=== PATIENT | female | born 1985 | race Two or more races ===

== ENCOUNTER 2019-11-03 08:14 | Inpatient (IN) ==
[2019-11-03 09:14] LABS: Hematocrit 35 % (35-47); Hemoglobin 12.3 g/dL (12.0-16.0); Mean Corpuscular HGB Conc 35 g/dL (31-36); Mean Corpuscular Hemoglobin 29 pg (27-31); Mean Corpuscular Volume 82 fL (80-97); Mean Platelet Volume 11.9 fL (7.4-10.4); Platelet Count 144 10^3/uL (150-450); Red Cell Distribution Width 14 % (10-15); White Blood Count 8.4 10^3/uL (3.5-10.8)
[2019-11-03] MEDS: Lactated Ringers 1000 ml BAG 1,000 ML IV SCH ×3 (09:21→17:53)
[2019-11-03] MEDS ORDERED: Lactated Ringers 1000 ml BAG 1,000 ML IV ONE ×2 (09:44→12:47)
[2019-11-03 09:46] LABS: Urine Benzodiazepine Screen None Detected (None Detect); Urine Cannabinoids Screen None Detected (None Detect); Urine Opiates Screen None Detected (None Detect)
[2019-11-03] MEDS ORDERED: OBEPIDURAL 250 ML EPIDURAL ONE (10:18)
[2019-11-03] MEDS ORDERED: Oxytocin in LR 20 UNITS/1,000 ML BAG IVPB ONE (12:23)
[2019-11-03] MEDS ORDERED: EPHEDrine (Pressors) 50 MG/ML VIAL IV PUSH PRN ×2 (12:47)
[2019-11-03] MEDS ORDERED: Sodium Citrate/Citric Acid LIQ 15 ML UDC PO PRN (12:47)
[2019-11-03] MEDS ORDERED: Lactated Ringers 1000 ml BAG 500 ML IV PRN (12:47)
[2019-11-03] MEDS ORDERED: Phenylephrine 40 mcg/mL 10mL (400mcg) SYRINGE IV PUSH PRN ×2 (12:47)
[2019-11-03] MEDS ORDERED: OBEPIDURAL 250 ML EPIDURAL SCH (13:00)
[2019-11-03] MEDS ORDERED: Oxytocin in LR 20 UNITS/1,000 ML BAG IVPB SCH (13:00)
[2019-11-03] MEDS ORDERED: Lactated Ringers 1000 ml BAG 1,000 ML IV SCH ×2 (13:00→23:00)
[2019-11-03] MEDS ORDERED: Bupivacaine 0.25% SDV PF 10 ML VIAL INJ ONE (20:06)
[2019-11-03] MEDS ORDERED: Glycerin ADULT 2.4 gm SUPP PR PRN (22:32)
[2019-11-03] MEDS ORDERED: Dibucaine 1% OINT 28.35 GM TUBE PR PRN (22:32)
[2019-11-03] MEDS: Witch Hazel PAD JAR TOPICAL PRN (23:20)
[2019-11-04] MEDS ORDERED: diPHENhydraMINE 25 mg TAB ONE (00:58)
[2019-11-04] MEDS ORDERED: diPHENhydraMINE 25 mg TAB PO ONE (00:58)
[2019-11-04] MEDS ORDERED: Lidocaine 1% VIAL 10 MG/ML VIAL ONE (01:10)
[2019-11-04 10:15] LABS: ABS Lymphocytes 2.2 10^3/ul (1.0-4.8); ABS Monocytes 0.7 10^3/ul (0-0.8); ABS Neutrophils 11.5 10^3/ul (1.5-7.7); Eosinophil % 0.1 %; Hematocrit 31 % (35-47); Hemoglobin 10.2 g/dL (12.0-16.0); Lymphocyte % 14.9 %; Mean Corpuscular HGB Conc 33 g/dL (31-36); Mean Corpuscular Hemoglobin 28 pg (27-31); Mean Corpuscular Volume 85 fL (80-97); Platelet Count 129 10^3/uL (150-450); Red Cell Distribution Width 14 % (10-15); White Blood Count 14.5 10^3/uL (3.5-10.8)
[2019-11-05] MEDS: Witch Hazel PAD JAR TOPICAL PRN (09:06)
[2019-11-05 11:57] VITALS: BP 112/71
== END 2019-11-05 17:52 | disposition home or self-care (01) | DRG 807 ==
LOC: MCHOBOUT 08:14 → MCHOB 09:27
PROVIDERS: ADMIT Obstetrics & Gynecology; ATTEND Obstetrics & Gynecology

== ENCOUNTER 2023-07-14 08:08 | Inpatient (IN) ==
[2023-07-14] MEDS ORDERED: Lidocaine 1% VIAL 10 MG/ML 30 ML VIAL INJ PRN (09:11)
[2023-07-14] MEDS ORDERED: Prochlorperazine 5 mg/ml 2 ml VIAL (10 mg) IV PRN (09:11)
[2023-07-14 09:34] LABS: ABS Eosinophils 0.1 10^3/uL (0.0-0.5); ABS Lymphocytes 1.7 10^3/uL (1.0-4.8); ABS Monocytes 0.4 10^3/uL (0.0-0.9); ABS Neutrophils 4.6 10^3/uL (1.5-7.6); ABS Nucleated RBC 0.02 10^3/ul; Eosinophil % 1.1 %; Hematocrit 34.8 % (35-45); Hemoglobin 11.8 g/dL (11.5-14.3); Lymphocyte % 24.5 %; Mean Corpuscular Hemoglobin 27.1 pg (27-33); Mean Corpuscular Hgb Conc 33.9 g/dL (31-36); Mean Corpuscular Volume 79.8 fL (80-97); Mean Platelet Volume 11.1 fL (7.5-11.2); Nucleated Red Blood Cells % 0.3 %/100WBC (0.0-0.8); Platelet Count 195 10^3/uL (150-450); Red Blood Count 4.36 10^6/uL (3.63-4.92); Red Cell Distribution Width 14.2 % (12-17); White Blood Count 6.8 10^3/uL (3.8-11.8)
[2023-07-14] MEDS: Lactated Ringers 1000 ml BAG 1,000 ML IV SCH ×2 (09:58→19:49)
[2023-07-14 10:00] LABS: Urine Benzodiazepine Screen None Detected (None Detect); Urine Cannabinoids Screen None Detected (None Detect); Urine Opiates Screen None Detected (None Detect)
[2023-07-14] MEDS: Oxytocin in LR 20,000 MILLI.UNIT/1,000 ML BAG IV SCH ×2 (10:02→17:30)
[2023-07-14] MEDS: OBEPIDURAL (200 ML) 200 ML EPIDURAL SCH (11:28)
[2023-07-14] MEDS: Lactated Ringers 1000 ml BAG 1,000 ML IV ONE ×2 (11:28→19:49)
[2023-07-14] MEDS ORDERED: Sodium Citrate/Citric Acid LIQ 15 ML UDC PO PRN (12:11)
[2023-07-14] MEDS ORDERED: Phenylephrine 40 mcg/mL 10mL (400mcg) SYRINGE IV PUSH PRN (12:11)
[2023-07-14 12:37] LABS: Urine Appearance Clear; Urine Bilirubin Negative (Negative); Urine Blood Trace (Negative); Urine Color Light-Yellow; Urine Glucose Negative (Negative); Urine Ketones Negative (Negative); Urine Nitrite Negative (Negative); Urine Protein Negative (Negative); Urine Specific Gravity 1.012 (1.002-1.030); Urine Urobilinogen Negative (Negative)
[2023-07-14] MEDS ORDERED: Bupivacaine 0.25% w/EPI 10 ML SDV ONE (14:26)
[2023-07-14] MEDS: Phenylephrine 40 mcg/mL 10mL (400mcg) SYRINGE IV PUSH PRN (15:12)
[2023-07-14] MEDS ORDERED: Glycerin ADULT 2.4 gm SUPP PR PRN (17:37)
[2023-07-14] MEDS ORDERED: Lactated Ringers 1000 ml BAG 1,000 ML IV SCH (18:00)
[2023-07-14] MEDS: Buffered Lidocaine 1% SYRIN 1 ml INTRADERM ONE (19:46)
[2023-07-14] MEDS: OBEPIDURAL (200 ML) 200 ML EPIDURAL ONE (19:49)
[2023-07-14] MEDS: Lidocaine 1.5% EPI 1:200,000 30 ML SDV ONE (20:09)
[2023-07-15] MEDS: Witch Hazel PAD JAR TOPICAL PRN (06:03)
[2023-07-15] MEDS: Dibucaine 1% OINT 28.35 GM TUBE PR PRN (06:03)
[2023-07-15 06:30] LABS: ABS Eosinophils 0.1 10^3/uL (0.0-0.5); ABS Lymphocytes 2.1 10^3/uL (1.0-4.8); ABS Monocytes 0.5 10^3/uL (0.0-0.9); ABS Nucleated RBC 0.01 10^3/ul; Eosinophil % 0.8 %; Hematocrit 29.4 % (35-45); Hemoglobin 10.1 g/dL (11.5-14.3); Lymphocyte % 21.8 %; Mean Corpuscular Hemoglobin 27.3 pg (27-33); Mean Corpuscular Hgb Conc 34.3 g/dL (31-36); Mean Corpuscular Volume 79.6 fL (80-97); Mean Platelet Volume 10.4 fL (7.5-11.2); Nucleated Red Blood Cells % 0.1 %/100WBC (0.0-0.8); Platelet Count 162 10^3/uL (150-450); Red Blood Count 3.69 10^6/uL (3.63-4.92); Red Cell Distribution Width 13.9 % (12-17); White Blood Count 9.7 10^3/uL (3.8-11.8)
[2023-07-15] MEDS: Tetan/Diph/Pertus SYR(Tdap) 0.5 ML SYR(BOOSTRIX) use SYR contains LATEX IM ONE (14:47)
[2023-07-15 16:10] VITALS: BP 122/73
== END 2023-07-15 19:00 | disposition home or self-care (01) | DRG 560 ==
LOC: MCHOBOUT 08:08 → MCHOB 09:10
PROVIDERS: ADMIT Obstetrics & Gynecology; ATTEND Obstetrics & Gynecology

== ENCOUNTER 2023-07-17 21:46 | Inpatient (IN) ==
[2023-07-17] MEDS: Lactated Ringers SEPSIS* BAG 2,180 ML IV ONE (22:12)
[2023-07-17] MEDS: Morphine 4 MG/ML VIAL (1 ml) IV ONE (22:16)
[2023-07-17] MEDS: Ondansetron 4 mg VIAL 2 MG/ML 2 ml VIAL IV ONE (22:16)
[2023-07-17] MEDS: Clindamycin 900 MG/D5W BAG 900 MG/50 ML BAG IVPB ONE (22:17)
[2023-07-17 22:33] LABS: Activated Partial Thrombo Time 25.7 seconds (26.0-38.0); INR 0.85 (0.83-1.13)
[2023-07-17 22:38] LABS: ABS Lymphocytes 0.5 10^3/uL (1.0-4.8); ABS Neutrophils 3.7 10^3/uL (1.5-7.6); ABS Nucleated RBC 0.01 10^3/ul; Eosinophil % 0.5 %; Hematocrit 30.6 % (35-45); Hemoglobin 10.3 g/dL (11.5-14.3); Lymphocyte % 11.3 %; Mean Corpuscular Hemoglobin 27.2 pg (27-33); Mean Corpuscular Hgb Conc 33.8 g/dL (31-36); Mean Corpuscular Volume 80.3 fL (80-97); Mean Platelet Volume 9.6 fL (7.5-11.2); Nucleated Red Blood Cells % 0.2 %/100WBC (0.0-0.8); Platelet Count 219 10^3/uL (150-450); Red Blood Count 3.81 10^6/uL (3.63-4.92); Red Cell Distribution Width 14.2 % (12-17); White Blood Count 4.3 10^3/uL (3.8-11.8)
[2023-07-17 22:56] LABS: Albumin/Globulin Ratio 1.3 (1-3); C Reactive Protein 83.87 mg/L (<8.01); Calcium 8.1 mg/dL (8.6-10.3); Creatinine, Serum 0.85 mg/dL (0.51-0.95); Globulin 2.4 g/dL (2-4); Total Bilirubin 0.2 mg/dL (0.2-1.0); Total Protein 5.4 g/dL (6.4-8.9); eGFR CKD-EPI 90.4 (>60)
[2023-07-17] MEDS: Gentamicin ADULT 360 MG in NS 0.9% 100 ml BAG 100 ML IVPB ONE (23:14)
[2023-07-17 23:16] LABS: Urine Appearance Extra Turbid; Urine Bilirubin Negative (Negative); Urine Blood 2+ (Negative); Urine Color Light-Yellow; Urine Glucose Negative (Negative); Urine Ketones Negative (Negative); Urine Nitrite Negative (Negative); Urine Protein 2+ (>=100 mg/dL) (Negative); Urine Specific Gravity 1.012 (1.002-1.030); Urine Urobilinogen Negative (Negative); Urine pH 6.5 (5.0-8.0)
[2023-07-17 23:25] LABS: Urine Bacteria Absent /HPF (Absent); Urine Red Blood Cell 3+(>10/hpf) /HPF (0-Trace); Urine Squamous Epithelial Cell Present /HPF (Absent); Urine White Blood Cell 3+(>20/hpf) /HPF (0-Trace)
[2023-07-17 23:42] LABS: High Sensitivity Troponin 1 Hr 14 pg/mL (<15)
[2023-07-17] MEDS: Ampicillin ADVAN 2 GM in NS 0.9% 100 ml BAG 100 ML IVPB ONE (23:45)
[2023-07-18] MEDS ORDERED: Dibucaine 1% OINT 28.35 GM TUBE PR PRN (00:41)
[2023-07-18] MEDS: Gentamicin ADULT 360 MG in NS 0.9% 100 ml BAG 100 ML IVPB SCH (02:26)
[2023-07-18] MEDS: Ampicillin ADVAN 2 GM in NS 0.9% 100 ml BAG 100 ML IVPB SCH (05:56)
[2023-07-18] MEDS: Clindamycin 900 MG/D5W BAG 900 MG/50 ML BAG IVPB SCH (06:34)
[2023-07-18] MEDS: cefTRIAXone 2 gm/50 mL D5W 2 GM/50 ML BAG IV SCH (11:08)
[2023-07-18] MEDS: Witch Hazel PAD JAR TOPICAL PRN (18:04)
[2023-07-18] MEDS ORDERED: Magnesium Hydroxide LIQ 30 ML UDC PO PRN (23:36)
[2023-07-19 07:38] LABS: ABS Eosinophils 0.1 10^3/uL (0.0-0.5); ABS Lymphocytes 1.4 10^3/uL (1.0-4.8); ABS Monocytes 0.6 10^3/uL (0.0-0.9); ABS Neutrophils 4.6 10^3/uL (1.5-7.6); Eosinophil % 2.1 %; Hematocrit 27.7 % (35-45); Hemoglobin 9.3 g/dL (11.5-14.3); Lymphocyte % 20.8 %; Mean Corpuscular Hemoglobin 27.5 pg (27-33); Mean Corpuscular Hgb Conc 33.6 g/dL (31-36); Mean Corpuscular Volume 81.7 fL (80-97); Mean Platelet Volume 9.3 fL (7.5-11.2); Platelet Count 208 10^3/uL (150-450); Red Blood Count 3.39 10^6/uL (3.63-4.92); Red Cell Distribution Width 14.3 % (12-17); White Blood Count 6.8 10^3/uL (3.8-11.8)
[2023-07-20 09:56] VITALS: BP 116/76
== END 2023-07-20 13:35 | disposition home or self-care (01) | DRG 561 ==
LOC: ED 21:46 → EDHOLD 07-18 00:34 → SSU 07-18 02:16
PROVIDERS: ADMIT Obstetrics & Gynecology; ATTEND Obstetrics & Gynecology